=== PATIENT | male | born 1965 | race Caucasian/White ===

== ENCOUNTER 2017-01-19 09:00 | Inpatient (IN) | payer OTHER ==
[~2017-01-19] VITALS: Ht 177.8 cm; Wt 101.3 kg
--- NOTE | ~2017-01-19 | OR ---
PATIENT'S NAME: [facility] AGE: 51 Y [address] ROOM: [address] [address] LOCATION: [facility] ADMIT DATE: 01/25/2017 OR/Procedure Report DISCHARGE DATE: FAMILY PHYSICIAN: Kenneth Little ATTENDING PHYSICIAN: GILBERTO AGUAYO SURGEON: Gilberto Aguayo MD BODY STRAIGHTENER: 1. Isak Long CST/JOSELO. 2. Gilberto Cortes. DATE OF PROCEDURE: 01/25/2017 PRE-OP DIAGNOSIS: Degenerative joint disease right knee. POST-OP DIAGNOSIS: Degenerative joint disease right knee. OPERATION: Right total knee arthroplasty with computer navigation. ANESTHESIA: Spinal anesthesia plus adductor canal block plus subcutaneous and periarticular local anesthesia (ropivacaine with epinephrine). ESTIMATED BLOOD LOSS: Less than 10mL. DRAIN: None. SPECIMEN: None. COMPLICATIONS: None. IMPLANT SYSTEM: Josefina Triathlon Size 6 right posterior stabilized femoral component Size 5 universal modular tibial baseplate 9 mm posterior stabilized size 5 X3 tibial polyethylene insert 35 mm Oval X3 patella component (triple pegged). INDICATIONS FOR SURGERY: The patient is a 51-year-old male who presents with advanced right knee degenerative joint disease and associated severely compromised activities of daily living. The patient has decided to proceed with knee replacement after having been thoroughly counseled regarding the associated risks, benefits, and limitations. We have specifically reviewed the risks and implications of infection, deep venous thrombosis, pulmonary embolism, mortality, neurovascular complications, blood transfusion (and associated potential for disease transmission or transfusion reaction), stiffness, instability, mechanical deterioration of the components (due to wear and or loosening), and the potential need for revision. We have also emphasized the importance of active involvement and compliance with post- operative physical therapy as a means of optimizing range of motion and PATIENT'S NAME: [facility] AGE: 51 Y [address] ROOM: [address] [address] LOCATION: [facility] ADMIT DATE: 01/25/2017 OR/Procedure Report DISCHARGE DATE: FAMILY PHYSICIAN: Kenneth Little ATTENDING PHYSICIAN: GILBERTO AGUAYO functional recovery. Informed consent has been granted. DESCRIPTION OF PROCEDURE: The patient was positioned supine after administration of anesthesia and prophylactic antibiotics. A well-padded pneumatic tourniquet was placed around the right proximal thigh, and the right lower extremity was prepped and draped with vigilant sterile technique. The patient's name as well as the intended operative side and procedure were confirmed with a verbal time-out involving myself, the circulating nurse, the scrub nurse, and the anesthesiologist. Examination under anesthesia demonstrated no active skin lesions or masses. There were well-healed inferomedial and inferolateral arthroscopy portal scars. There was a moderate effusion. There was no erythema. There was no abnormal warmth. Range of motion under anesthesia was from a 10-degree flexion contracture to 130 degrees of flexion. There was no ligamentous insufficiency. The right lower extremity was elevated and exsanguinated with an Esmarch wrap, and the pneumatic tourniquet was inflated to 300mmHg. The knee was approached through a longitudinal midline incision. A medial parapatellar arthrotomy was performed and the patella was everted. Examination of the joint space demonstrated a moderately increased amount of benign-appearing translucent synovial fluid. There was a 10 x 15 x 5 mm osseous loose body in the lateral gutter. There was no synovitis. The cruciate ligaments were intact. There were moderate-sized osteophytes at the intercondylar notch medially and laterally. There was a large osteophyte at the anterior aspect of the intercondylar notch. There was a 1 cm diameter osseous mass. It was adherent to the anterior mid portion of the tibial plateau with fibrous tissue. There was a 1 cm diameter osseous fragment imbedded within the synovial tissue fixed to the posterior cruciate ligament at the posterior aspect of the intercondylar notch. The cruciate ligaments were intact. There was full- thickness loss of articular cartilage throughout the inferior half of the lateral facet of the patella. There was full-thickness loss of articular cartilage involving 90% of the lateral half of the femoral trochlea. There were large osteophytes at the superolateral and inferomedial margins of the patella. There were moderate grade 3 degenerative changes throughout the majority of the medial femoral condyle and medial tibial plateau. There were small osteophytes at the medial and lateral tibial plateaus. There were moderate-sized osteophytes at the medial and lateral femoral condyles. There were 2 separate 1 cm diameter grade 4 lesions at the lateral femoral condyle. There was a small intrameniscal cyst at the posterior horn of the medial meniscus. There was a moderate-sized undersurface flap tear at the posterior horn of the medial meniscus. There was mild inner perimeter tearing of the lateral meniscus. PATIENT'S NAME: MARIA TERESA [facility]AN[facility] AGE: 51 Y [address] ROOM: [id number] [place], [place] [address] LOCATION: [facility] ADMIT DATE: 01/25/2017 OR/Procedure Report DISCHARGE DATE: FAMILY PHYSICIAN: Kenneth Little ATTENDING PHYSICIAN: GILBERTO AGUAYO Remnants of the menisci and cruciate ligaments were excised. The Mapkin computer navigation femoral tracker was pinned in place at the distal aspect of the femoral trochlea. Absence of motion between the femur and the tracking device was confirmed manually and visually. Femoral osseous landmarks were obtained in order to calibrate the computer navigation system. Landmarks included the center of rotation of the ipsilateral hip, the center-point of the distal femur, the femoral AP axis, 57 points on the medial femoral condyle articular surface, and 57 points on the lateral femoral condyle articular surface. The Mapkin computer navigation system was subsequently utilized to position the distal femoral resection block such that the distal femoral resection was performed perfectly perpendicular to the femoral mechanical axis. The distal femoral resection was performed with a InteKrin oscillating saw. The Mapkin computer navigation tibial tracker was pinned in place at the anterior aspect of the tibial plateau. Absence of motion between the tibia and the tracking device was confirmed manually and visually. Tibial osseous landmarks were obtained in order to calibrate the computer navigation system. Landmarks included the center-point of the tibial plateau, the AP tibial axis, 57 points on the medial tibial plateau articular surface, 57 points on the lateral tibial plateau articular surface, the medial malleolus, and the lateral malleolus. The Mapkin computer navigation system was subsequently utilized to position the proximal tibial resection block such that the proximal tibial resection was performed perfectly perpendicular to the tibial mechanical axis. The proximal tibial resection was performed with a [employer] Precision oscillating saw. Perpendicularity of the tibial resection with respect to the tibial shaft axis was reconfirmed by inserting a spacer- block attached to an extramedullary guide kemi. External rotation of the anterior and posterior femoral resections was set parallel to the epicondylar axis and carefully adjusted in order to create a rectangular flexion gap. The box resection was performed with a reciprocating saw. Anterior and posterior chamfer resections were performed with the oscillating saw. Posterior condyle osteophytes were excised with an osteotome. All other osteophytes were excised with a rongeur. Resection of all remnants of the menisci was reconfirmed. Flexion and extension gaps were confirmed to be symmetric and well balanced with a spacer-block technique. The patella resection was performed with an oscillating saw such that the composite thickness of the reconstructed patella was equivalent to the thickness of the white earth patella. Patella tracking was optimal and there was no need for a lateral retinacular release. All trial components were removed and all prepared osseous surfaces were PATIENT'S NAME: MARIA TERESA SWANSON AGE: 51 Y [address] ROOM: [address] [address] LOCATION: [facility] ADMIT DATE: 01/25/2017 OR/Procedure Report DISCHARGE DATE: FAMILY PHYSICIAN: Kenneth Little ATTENDING PHYSICIAN: GILBERTO AGUAYO thoroughly irrigated with pulsatile saline lavage and dried prior to cementing all three components in a single stage using [employer] Simplex cement containing pre-mixed tobramycin. All extruded excess cement was removed. The entire joint space was thoroughly inspected and thoroughly irrigated with bacteriostatic pulsatile saline lavage to assure that there was no residual debris of any sort. Final range of motion was from full extension (with no passive hyperextension) to 130 degrees of flexion. Patella tracking was reconfirmed to be optimal. There was excellent anteroposterior stability at 90 degrees of flexion. There was less than 1 mm of medial lift-off to valgus stress in full extension. There was less than 1 mm of lateral lift-off to varus stress in full extension. The arthrotomy was closed with multiple simple and [id number] interrupted #1 Vicryl. Subcutaneous tissues were thoroughly re-irrigated with bacteriostatic pulsatile saline lavage. Subcutaneous tissues were re- approximated with simple buried interrupted #0 Vicryl sutures. The skin was closed with simple buried interrupted 2-0 Vicryl sutures followed by surgical belén. The dressing consisted of Xeroform gauze, 4x4 gauze, ABD pads and two 6-inch Burton Wraps. There were no intra-operative complications. MD LALA BENITEZ/beto /[id number] d: 01/25/171920 t: 01/28/17 1747, OPERATIVE SUMMARY
--- NOTE | ~2017-01-19 | CON ---
PATIENT'S NAME: [facility] AGE: 51 Y [address] ROOM: [id number] [place], [place] [address] LOCATION: [facility] ADMIT DATE: 01/25/2017 Consultation DISCHARGE DATE: 01/27/2017 FAMILY PHYSICIAN: Kenneth Little ATTENDING PHYSICIAN: Darion Masters DATE OF CONSULTATION: 01/27/2017 REFERRING PHYSICIAN: Edmundo Vila MD INDICATION: Acute respiratory failure. HISTORY OF PRESENT ILLNESS: This is a 51-year-old male, admitted for a right total knee after trauma. He denies any history of lung disease or any other comorbidities prior to this. He denies any history of asthma or COPD. He is a former smoker for 2 years and quit 40 years ago. Review of records show that since surgery, he has required 1-2 L of oxygen. He currently is up in the chair and denies any shortness of breath, cough, wheezing, or edema. He denies any excessive daytime sleepiness. He is 76% on room air without oxygen. He requires 3 L to maintain oxygen saturations of 90%. So far, chest x-ray has been normal, however, overnight oximetry was positive. DI on overnight oximetry was 3.3. PAST MEDICAL HISTORY: Includes degenerative joint disease, status post right total knee arthroplasty. ALLERGIES: SEE MAR. MEDICATIONS: See MAR. FAMILY HISTORY: Negative for lung disease or heart disease. SOCIAL HISTORY: He smoked for 2 years and quit 40 years ago. He denies any alcohol or illicit drug use. REVIEW OF SYSTEMS: A 12-point review of systems was negative except what is noted in the HPI. PHYSICAL EXAMINATION: VITAL SIGNS: Blood pressure 116/67, pulse 87, respirations 18, temp 98.3. PATIENT'S NAME: [facility] AGE: 51 Y [address] ROOM: [id number] [place], [place] [address] LOCATION: [facility] ADMIT DATE: 01/25/2017 Consultation DISCHARGE DATE: 01/27/2017 FAMILY PHYSICIAN: Kenneth Little ATTENDING PHYSICIAN: Darion Masters I's and O's are positive. GENERAL: This is a 51-year-old, well-developed, well-nourished male, who is alert and oriented x3 and appears in no acute distress at the time of exam. HEENT: Head: Normocephalic and atraumatic. Eyes, clear. NECK: Supple. No adenopathy. No carotid bruit or JVD. LUNGS: Decreased breath sounds at the bases but otherwise clear. HEART: Regular rate and rhythm without murmur, gallop, or rub. ABDOMEN: Soft, nontender, and nondistended. Bowel sounds x4. EXTREMITIES: No cyanosis, clubbing, or edema. DIAGNOSTIC DATA: A chest x-ray was normal. Overnight oximetry was positive with DI of 3.3. ASSESSMENT: 1. Acute hypoxic respiratory failure, suspect due to hypoventilation secondary to opioids plus or minus pulmonary edema. 2. Status post right total knee arthroplasty. PLAN: We will plan to check an ABG, pro-BNP, CBC, and renal panel. We recommend decreasing opioid dose and frequency as much as possible. We will also obtain echo reports from [facility], which he reports were done on January 24, 2017. Further recommendations will be made pending the course of his stay. Thank you for the consult and opportunity to participate in the patient's care. VENKATESH KING APRN FOR HARLAN HASTINGS MD [facility]/modl /[id number] d: 02/16/17 0059 t: 03/08/17 1351, CONSULTATION REPORT
--- NOTE | ~2017-01-19 | PUL ---
PATIENT'S NAME: MARIA TERESA SWANSON [facility] AGE: 51 Y [address] ROOM: [address] [address] LOCATION: [facility] ADMIT DATE: 01/25/2017 Pulmonary DISCHARGE DATE: 01/27/2017 FAMILY PHYSICIAN: Kenneth Little ATTENDING PHYSICIAN: Darion Masters NAME OF PROCEDURE: Overnight Pulse Oximetry DATE OF PROCEDURE: January 26 to January 27, 2017 REASON FOR PROCEDURE: Nocturnal hypoxemia RESULTS: The test was started on room air, but supplemental oxygen at 1 liter/minute was added approximately 10 minutes and into the study. The recording time and total valid sampling time were 8 hours, 26 minutes and 28 seconds. The highest pulse was 109, lowest pulse was 65, with a mean pulse of 82. The highest SpO2 was 95%, lowest SpO2 was 72%, with a mean SpO2 of 90%. The patient spent 1 hour, 25 minutes and 12 seconds with SpO2 less than 89%, representing 16.8% of the total sleep time. The desaturation event index was normal at 3.3. PHYSICIAN INTERPRETATION: The patient has evidence of significant nocturnal hypoxia and would qualify for supplemental oxygen as per Medicare criteria. MD SHARRI DOMINIQUE/ebenezer /[id number] dtt: 01/29/17 0937 , HARLAN HASTINGS dtd: 01/28/17 1122
--- NOTE | ~2017-01-19 | HP ---
PATIENT'S NAME: [facility] AGE: 51 Y [address] ROOM: [address] [address] LOCATION: [facility] ADMIT DATE: 01/25/2017 History & Physical DISCHARGE DATE: FAMILY PHYSICIAN: Kenneth Little ATTENDING PHYSICIAN: GILBERTO AGUAYO DATE OF SERVICE: CHIEF COMPLAINT: Right knee pain. 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 Gilberto Aguayo today and he has taken a trip to the operating room with a preop diagnosis of end-stage DJD, right knee. The patient has undergone a successful uncomplicated right total knee arthroplasty when I see him, and I have been asked to follow him for postop pain management and general medical care. When I see him, he is resting quietly in bed with his present for the interview on 3 at [facility]. He has complained in the last 2 hours of some pain in his left eye when he blinks. There is no history of trauma, no history of eye pain prior to admission. He says his vision is fine. He says his pain control at this point in regard to his knee surgery is adequate and he has no nausea, vomiting, chest pain, or shortness of breath. CURRENT MEDICATIONS: None. ALLERGIES: ULTRAM AND TYLOX, BOTH CAUSING VOMITING. SOCIAL HISTORY: Never smoked. FAMILY HISTORY: Negative for problems with bleeding disorder or general anesthesia. PREVIOUS OPERATIONS: Status post left ankle surgery; carpal tunnel surgery, right arm; shoulder surgery, right side twice; elbow surgery, right side in 2003; arthroscopy, right knee x2; and reduction fracture, open left forearm. IMMUNIZATIONS: Unknown. [facility] AGE: 51 Y [address] ROOM: [address] [address] LOCATION: [facility] ADMIT DATE: 01/25/2017 History & Physical DISCHARGE DATE: FAMILY PHYSICIAN: Kenneth Little ATTENDING PHYSICIAN: GILBERTO AGUAYO REVIEW OF SYSTEMS: HEENT: As above. ENDOCRINE: He is not diabetic. There is no thyroid disease. LUNGS: No history of asthma. HEART: No history of chest pain, palpitations, hypertension, or previous RI. GI: No recent nausea, vomiting, diarrhea, symptoms of reflux, change in bowel habits, melena, or weight loss. : No dysuria, frequency. No recent history of problems with BPH or renal lithiasis. EXTREMITIES: As above. NEUROLOGIC: No history of seizures, syncope, or prior stroke. SKIN: No recent rashes. MENTAL STATUS: No recent depression or anxiety. PHYSICAL EXAMINATION: GENERAL: A jeter-haired male, bearded, lying in bed on 3 [address]. Oriented to person, place, time, and competent. He is pleasant, complaining of mild left eye pain, intermittent in nature. HEENT: He wears glasses. Inspection of his left eye shows anterior chamber clear. I did not do a fluorescein stain. There is no obvious foreign body present in the eye. Eversion of the upper and lower lid shows no gross abnormality. Right eye is unremarkable also. Nose is clear. Throat is clear. NECK: Unremarkable. No thyroid enlargement. LUNGS: Clear without wheeze or rub. HEART: No murmur, gallop, or rub. ABDOMEN: Benign without point tenderness. PELVIC: Not done. RECTAL: Not done. EXTREMITIES: Show dressing and pad on the right knee. Pulses full throughout. NEUROLOGIC: Grossly intact without lateralizing signs. Cranial nerves intact. Mental status: Normal postop status. ASSESSMENT: 1. End-stage degenerative joint disease, right knee. 2. Status post right total knee arthroplasty today, 01/25/2017, operating surgeon Dr. Gilberto Aguayo. 3. Left eye pain with blinking postop x2 hours with grossly normal physical exam without fluorescein stain. 4. Gastrointestinal upset with Ultram and Tylox. 5. History of surgeries in the past described above. PLAN: Empirically, we will treat overnight with Tobrex 2 drops to left eye 4 times a PATIENT'S NAME: MARIA TERESA SWANSON [facility] AGE: 51 Y [address] ROOM: [address] [address] LOCATION: [facility] ADMIT DATE: 01/25/2017 History & Physical DISCHARGE DATE: FAMILY PHYSICIAN: Kenneth Little ATTENDING PHYSICIAN: GILBERTO AGUAYO. If he is no better in the morning, we will do fluorescein stain or obtain an ophthalmologic consultation. Do note no severe eye pain, no severe light sensitivity this evening. No change in vision this evening, left eye. MD SHARA REZA/beto /[id number] D: [id number] T: [id number] HISTORY & PHYSICAL
--- NOTE | ~2017-01-19 | DS ---
PATIENT'S NAME: MARIA TERESA SWANSON [facility] AGE: 51 Y [address] ROOM: [place] [address] LOCATION: [facility] ADMIT DATE: 01/25/2017 Discharge Summary DISCHARGE DATE: 01/27/2017 FAMILY PHYSICIAN: Kenneth Little ATTENDING PHYSICIAN: Darion Masters PRIMARY DIAGNOSIS: Degenerative joint disease of the right knee. SECONDARY DIAGNOSIS: There are no significant secondary diagnoses. PROCEDURE PERFORMED: Right total knee arthroplasty with computer navigation. HISTORY: The patient is a 51-year-old male, who presents with advanced right knee degenerative joint disease and associated severely compromised activities of daily living. The patient has decided to proceed with total knee arthroplasty after having been thoroughly counseled regarding the risks, benefits, limitations and alternatives. Please refer to the outpatient clinic notes and admission history and physical for this patient. HOSPITAL COURSE: The patient underwent a right total knee arthroplasty on 01/25/2017 without complications. Spinal anesthesia plus adductor canal block plus periarticular local anesthesia was utilized. The patient received 24 hours of perioperative prophylactic antibiotics and remained hemodynamically stable, neurovascularly intact throughout the entire hospital course. The postoperative prophylactic deep venous thrombosis prophylaxis consisted of Xarelto 10 mg, early mobilization and pneumatic compression devices. Daily physical therapy for gait training, transfer training range of motion and quadriceps isometric exercises were received. The patient progressed well in physical therapy. On the date of discharge, 01/27/2017, the incision at the knee was healing well and showed no signs of infection. DISPOSITION: Home. DISCHARGE ACTIVITY: The patient is to bear weight as tolerated with range of motion and quadriceps isometric exercises as instructed. The operative extremity is to be elevated at least 90% of the day. There is to be sterile 4x4 gauze dressings to the incision daily. Dr. Msaters is to be notified immediately if there is any increased pain, fevers, chills erythema or drainage. DISCHARGE MEDICATIONS: 1. Xarelto 10 mg, take 1 tab p.o. daily for DVT prevention. Last dose will be on February 06, 2017. 2. Dilaudid 2 mg, take 1-2 tablets p.o. every 4 hours as needed for pain. 3. Valium 5 mg, take 1/2 tablet to 1 tablet every 6 hours as needed for PATIENT'S NAME: MARIA TERESA SWANSON [facility] AGE: 51 Y [address] ROOM: [address] [address] LOCATION: [facility] ADMIT DATE: 01/25/2017 Discharge Summary DISCHARGE DATE: 01/27/2017 FAMILY PHYSICIAN: Kenneth Little ATTENDING PHYSICIAN: Darion Masters muscle spasms. FOLLOWUP: Followup appointment is to be with Dr. Masters on 02/01/2017 for initial postoperative evaluation and x-rays at that time. CANDACE CASTELLANOS FOR MD TAYLOR BENITEZ/modl /[id number] d: 02/04/17 0411 t: 02/08/17 1530, DISCHARGE SUMMARY
--- NOTE | 2017-01-25 15:47 | NUR ---
Introduced self/role to patient and . Report they live in [place]. Therre are 4 steps to get in home with railing on left side. Has a cane, combination tub/shower. Planned to return home upon discharge. No concerns voiced. Will follow and assist as needs identified.
--- NOTE | 2017-01-25 17:00 | NUR ---
Pt here from PACU at 1340. VS will be 2nd hrly due at 1830. He had spinal and adductor canal block. Spinal still not gone yet. Some sensation feet and able to move them some. Has numbness and tingling. Says buttocks numb. Pt has been turned in bed several times, Not up in recliner yet. He was incontinent 3 times. Bladder scanned and straight cath done at 1520 for 100 ml urine. Pt denies pain. Ice to knee, burt dry and intact. Strong Rt pedal pulse, toes warm, césar well. Pt on O2 at 2 Liters. High risk ALBERTA. Pt complaining that left eye feels like something in it the past hr. Slightly red. will ask Dr Vila when he rounds. Pt uses [facility] at 3000. plans to stay the night.
--- NOTE | 2017-01-26 05:01 | NUR ---
Significant Event: Dressing is clean, dry and intact. CSM WNL. Voids without difficulty. 1 assist. 1 L of oxygen nasal cannula. Dilaudid last at 0424. Valium 2326. Follow up:
--- NOTE | 2017-01-26 10:40 | NUR ---
Introduced self/role to patient. He lives in [place] with his , she has been staying in the room. He does not anticipate any needs at home. will be there to assist him. Denied needs for DME. Wrote my name on his marker board, will continue to follow. Plans to discharge tomorrow.
--- NOTE | 2017-01-26 16:53 | NUR ---
Significant Event: FAMILIA DRESSING C/D/I TO R) KNEE. CSM ASSESSMENTS WNL TO R) LOWER EXTREMITY. RATES R) KNEE PAIN 6-5 ON PAIN SCALE, PAIN WELL CONTROLLED WITH PRN DILAUDID 1 TAB GIVEN LAST AT 1616. BILATERAL KNEE HIGH PANFILO HOSE AND FOOT PUMPS ON. AMBULATES TO BATHROOM AND UP TO CHAIR WITH 1 ASSIST, USE OF WALKER/GAIT BELT. C/O NAUSEA, ZOFRAN GIVEN AT 1620. EZ WRAP TO R) KNEE. Follow up:
--- NOTE | 2017-01-27 04:31 | NUR ---
Patient alert and oriented x3, very pleasant and cooperative, csm with in normal limits, transfers one assist with walker and gaitbelt, dressing clean dry and intact, trend ox done tonight needs one litter to keep from alarming dropped in the 70's with out oxygen, has rested one and off, also had some pain issues in the night, plans to go home today
[2017-01-27 11:49] LABS: BASOPHIL # 0.1 K/uL (0.0-0.2); BASOPHIL % 0.5 %; EOSINOPHIL # 0.2 K/uL (0.0-0.5); EOSINOPHIL % 1.5 %; HEMATOCRIT 34.7 % (37.0-53.0); HEMOGLOBIN 11.4 g/dL (12.0-17.0); IMMATURE GRANULOCYTE # 0.1 K/uL (0.0-0.3); IMMATURE GRANULOCYTE % 0.6 %; LYMPHOCYTE # 1.5 K/uL (0.8-4.0); LYMPHOCYTE % 13.3 %; MCH 29.6 pg (27.0-34.0); MCHC 32.9 gm/dL (32.0-36.5); MCV 90.1 fl (83.0-98.0); MONOCYTE # 0.9 K/uL (0.0-1.0); MONOCYTE % 8.4 %; MPV 10.9 fl (9.4-12.4); NEUTROPHIL # (ANC) 8.4 K/uL (1.4-9.0); NEUTROPHIL % 75.7 %; NRBC % 0 /100WBC (0-0.00); PLATELET COUNT 162 K/uL (150-450); RBC 3.85 M/uL (4.00-6.00); RDW-CV 13.3 % (11.9-14.6); WBC 11.1 K/uL (4.0-11.0)
[2017-01-27 12:09] LABS: ALBUMIN 3.3 gm/dL (3.5-5.0); ANION GAP 9.9 (10.0-19.0); BLOOD UREA NITROGEN 18 mg/dL (6-24); CALCIUM 8.5 mg/dL (8.5-10.5); CHLORIDE 102 mMol/L (96-110); CO2 31 mMol/L (22-32); CREATININE 1.1 mg/dL (0.6-1.3); ESTIMATED GFR (MDRD EQUATION) > 60; PHOSPHORUS 2.1 mg/dL (2.5-4.9); POTASSIUM 3.9 mMol/L (3.7-5.1); SODIUM 139 mMol/L (135-145)
[2017-01-27 12:17] LABS: BICARBONATE 27.4 mmol/L (18.0-23.0); PCO2 33 mmHg (35-45); PO2 44 mmHg (80-90)
--- NOTE | 2017-01-27 13:05 | NUR ---
Maritza with [facility] called wanted to know more about Workman's Comp. Looked up information from admissions and gave her the number for the case picker. She will have oxygen supplier call on his benefits. Nothing further needed from me at this time.
[2017-01-27] MEDS ORDERED: OXYGEN M-15 INH (15:25)
[2017-01-27] MEDS ORDERED: COLACE100 MG PO (15:26)
[2017-01-27] MEDS ORDERED: TYLENOL EXTRA500 MG PO (15:26)
[2017-01-27] MEDS ORDERED: MIRALAX17 GM PO (15:27)
[2017-01-27] MEDS ORDERED: LASIX20 MG PO (15:29)
[2017-01-27] MEDS ORDERED: XARELTO10 MG PO (15:29)
[2017-01-27] MEDS ORDERED: CELEBREX200 MG PO (15:30)
[2017-01-27] MEDS ORDERED: DILAUDID 2MG(HYD2 MG PO (15:30)
[2017-01-27] MEDS ORDERED: VALIUM5 MG PO (15:32)
--- NOTE | 2017-01-27 17:45 | NUR ---
Significant Event: Ambulates with SBA and walker. Dressing changed this am, belén intact. Ez wrap ice at all times. CSM WNL. Dilaudid 2mg and Tylenol 1000mg last at 1645. Valium 5mg last at 0850. Remains on 2L O2 at all times. IV d/cd. adam education given with dismissal instructions, patient and state understanding. Dismissed to home with . Follow up:
== END 2017-01-27 17:17 | disposition disaster alternative care site (69) | DRG 470 ==
LOC: G3N 01-25 06:46
PROVIDERS: Internal Medicine Critical Care Medicine; ADMIT Orthopaedic Surgery
PROC: 0SRC0J9 Replacement of Right Knee Joint with Synthetic Substitute, Cemented, Open Approach (ICD-10-PCS; principal; 2017-01-25)
DX: M17.11 Unilateral primary osteoarthritis, right knee (principal); G89.18 Other acute postprocedural pain; H57.12 Ocular pain, left eye; K92.89 Other specified diseases of the digestive system
CPT/HCPCS: C1713; C1776; J0690; J1100; J1170; J1885; J2250; J2405; J2795; J7120

== ENCOUNTER → 2017-01-20 | Outpatient (CLI) | payer OTHER ==
[~2017-01-20] MED LIST: CELEBREX200 MG PO; COLACE100 MG PO; DILAUDID 2MG(HYD2 MG PO; LASIX20 MG PO; MIRALAX17 GM PO; OXYGEN M-15 INH; TYLENOL EXTRA500 MG PO; VALIUM5 MG PO; XARELTO10 MG PO
== END | disposition disaster alternative care site (69) ==
LOC: GNJRC 10:12
DX: Z01.812 Encounter for preprocedural laboratory examination (principal); M17.11 Unilateral primary osteoarthritis, right knee